=== PATIENT | male | born 1985 | race Caucasian/White ===

== ENCOUNTER → 2023-11-16 | Outpatient (CLI) | payer OTHER ==
[2023-11-18 11:33] LABS: HIV 1,2 COMBO ANTIGEN/ANTIBODY Negative (Negative)
[2023-11-18 19:51] LABS: APTIMA MEDIA TYPE Urine; C. TRACHOMATIS BY TMA Negative (Negative); N. GONORRHOEAE BY TMA Negative (Negative); SPECIMEN SOURCE Urine
[2023-11-19 21:31] LABS: HSV 1 GLYCOPROTEIN G AB, IGG 55.7 IV (<=0.89); HSV 2 GLYCOPROTEIN G AB, IGG 0.03 IV (<=0.89)
== END | disposition home or self-care (01) ==
LOC: LAB 09:31 → LAB SHORT 09:31
PROVIDERS: Physician Assistant
DX: Z20.2 Contact with and (suspected) exposure to infections with a predominantly sexual mode of transmission (principal)
CPT/HCPCS: 86592; 86695; 86696; 87389; 87491; 87591